=== PATIENT | female | born 1985 | race Caucasian/White ===

== ENCOUNTER 2021-03-10 12:52 | Outpatient (REF) | payer BC, SELFPAY ==
[2021-03-10 17:08] LABS: *AMPHETAMINES SCREEN URINE Negative (Negative); *BARBITURATES SCREEN URINE Negative (Negative); *BENZODIAZEPINES SCREEN URINE Negative (Negative); Cannabinoids THC Negative (Negative); Cocaine Screen,Urine Negative (Negative); METHADONE URINE SCREEN Negative (Negative); OPIATES URINE SCREEN Negative (Negative)
[2021-03-10 17:10] LABS: Tricyclic Antidepressants Negative (Negative)
[2021-03-11 15:08] LABS: Chlamydia Result Negative (Negative); GC Result Negative (Negative)
[2021-03-17 13:51] LABS: Buprenorphine Negative ng/mL (Cutoff: 5.0); Norbuprenorphine Negative ng/mL (Cutoff: 2.5)
== END 2021-03-10 12:53 | disposition home or self-care (01) ==
LOC: LBN 12:52
PROVIDERS: Visit Provider Advanced Practice Midwife
DX: Z34.91 Encounter for supervision of normal pregnancy, unspecified, first trimester (principal); Z11.3 Encounter for screening for infections with a predominantly sexual mode of transmission; Z3A.11 11 weeks gestation of pregnancy
CPT/HCPCS: 80307; 87491; 87591; 87086

== ENCOUNTER 2021-03-22 03:55 | Outpatient (CLI) | payer BC, SELFPAY ==
[2021-03-22 10:29] LABS: Abs Immature Grans 0.05 10^3/uL (0.0-0.06); Absolute Basophil Count 0.04 10^3/uL (0.0-0.2); Absolute Eosinophil Count 0.35 10^3/uL (0.0-0.7); Absolute Lymphocyte Count 1.68 10^3/uL (1.2-3.4); Absolute Monocyte Count 0.56 10^3/uL (0.1-0.8); Absolute Neutrophil Count 9.01 10^3/uL (1.2-6.7); Basophils % 0.3; HCT 38.9 % (36.0-46.0); HGB 13.2 g/dL (11.2-15.7); Immature Grans % 0.4; Lymphocytes % 14.4; MCH 30.1 pg (27.0-33.0); MCHC 33.9 % (32.0-36.0); MCV 88.8 fL (80-95); MPV 10.1 fL (8.0-11.0); Monocytes % 4.8; Neutrophils % 77.1; Nucleated RBC 0 %; Platelet Count 322 10^3/uL (130-400); RBC 4.38 10^6/uL (3.93-5.22); RDW 12.5 % (11.7-14.6); RDW-SD 40.9 fL; WBC 11.69 10^3/uL (4.4-10.8)
[2021-03-22 11:58] LABS: TSH (W/Ref FT4) 2.09 uIU/mL (0.36-3.74)
[2021-03-23 10:01] LABS: Hepatitis B Surface Ag Negative (Negative)
[2021-03-23 11:55] LABS: HIV-1/2 Ag & Ab Screen Negative (Negative)
[2021-03-23 13:35] LABS: Hepatitis C Ab w Rflx HCV PCR Negative (Negative)
[2021-03-24 11:46] LABS: Rubella IgG Ab (UVM) Positive (See Note); Varicella IgG Antibody Positive (See Note)
[2021-03-24 13:12] LABS: Syphilis Total Ab w/Reflex Nonreactive (Nonreactive)
[2021-03-26 16:39] LABS: Specimen WB Whole Blood
[2021-04-06 15:48] LABS: Result Summary NEGATIVE; Specimen WB Whole Blood
== END 2021-03-22 03:56 | disposition home or self-care (01) ==
LOC: LBO 03:55
PROVIDERS: Visit Provider Advanced Practice Midwife
DX: O09.521 Supervision of elderly multigravida, first trimester (principal); Z11.4 Encounter for screening for human immunodeficiency virus [HIV]; Z11.59 Encounter for screening for other viral diseases; Z01.84 Encounter for antibody response examination; Z36.89 Encounter for other specified antenatal screening; Z3A.13 13 weeks gestation of pregnancy
CPT/HCPCS: 36415; 81329; 86787; 86803; 86850; 86900; 86901; 87340; 87389; 81220; 84443; 85025; 86762; 86780

== ENCOUNTER 2021-04-07 13:44 | Outpatient (REF) | payer BC, SELFPAY ==
[2021-04-13 11:59] LABS: AFP 46.3 ng/mL; Cigarette smoking status non-Smoker; GA used in risk estimate Scan estimate; IVF Pregnancy No; Initial or repeat testing Initial testing; Insulin dependent diabetes No; Maternal Weight 151 lbs; Number of Fetuses 1; Prev Pregnancy w/NTD No; RECOMMENDED FOLLOW UP None.; Results Summary Normal risk
== END 2021-04-07 13:45 | disposition home or self-care (01) ==
LOC: LBN 13:44
PROVIDERS: Visit Provider Advanced Practice Midwife
DX: O09.512 Supervision of elderly primigravida, second trimester (principal); Z3A.16 16 weeks gestation of pregnancy
CPT/HCPCS: 82105

== ENCOUNTER 2021-06-30 02:22 | Outpatient (CLI) | payer BC, SELFPAY ==
[2021-06-30 09:52] LABS: HCT 36.3 % (36.0-46.0); MCH 30.4 pg (27.0-33.0); MCHC 33.1 % (32.0-36.0); MCV 91.9 fL (80-95); MPV 9.9 fL (8.0-11.0); Platelet Count 274 10^3/uL (130-400); RBC 3.95 10^6/uL (3.93-5.22); RDW 12.8 % (11.7-14.6); RDW-SD 43.1 fL; WBC 11.76 10^3/uL (4.4-10.8)
[2021-06-30 09:58] LABS: Glucose,1 Hr (Glucola) 79 mg/dL (80-140)
== END 2021-06-30 02:23 | disposition home or self-care (01) ==
LOC: LBO 02:22
PROVIDERS: Advanced Practice Midwife; Visit Provider Advanced Practice Midwife
DX: Z34.92 Encounter for supervision of normal pregnancy, unspecified, second trimester (principal)
CPT/HCPCS: 36415; 82950; 85027

== ENCOUNTER 2021-08-12 16:00 | Outpatient (REF) | payer BC, SELFPAY | END 2021-08-12 16:01 | disposition home or self-care (01) | LOC: LBN 16:00 | PROVIDERS: Visit Provider Advanced Practice Midwife | DX: N89.8 Other specified noninflammatory disorders of vagina (principal); Z34.93 Encounter for supervision of normal pregnancy, unspecified, third trimester | CPT/HCPCS: 87480; 87510; 87660 ==

== ENCOUNTER 2021-08-25 07:11 | Outpatient (CLI) | payer BC, SELFPAY ==
[2021-08-25 10:52] VITALS: BP 120/74; PULSE 68; TEMP 36.7
[2021-08-25 11:26] VITALS: BP 120/74; PULSE 68
--- NOTE | 2021-08-25 13:05 | W.OBNST ---
Date of service: 08/25/21 Time of Service: 13:05 NST Evaluation Reason for NST Reasons for Nonstress Test: ADVANCED MATERNAL AGE Gestational Age Gestational Age in Weeks and Days: 36 Weeks and 0Days Test and Monitor Explained Test/Monitor Explained: Test Explained, Monitor Explained and Patient Verbalized Understanding Vital Signs Blood Pressure: 120/74 Pulse: 68 Temperature: 98.1 F NST Information Date on Monitor: 08/25/21 Time on Monitor: 10:51 Date off Monitor: 08/25/21 NST Interventions: PO Hydration NST Evaluation Patient States Movement: Present FHR Baseline: 115 Variability: Moderate 6-25 bpm Accelerations: 15x15 Decelerations: None NST Results: Reactive Note NST Note Note: NST was scheduled for AMA. Per consult with Dr. Wooten, Weekly NST not indicated due to age less than 40. Will call Cristina to discuss this. NST Reviewed and Verified by: Monie Romero
[2021-08-25 13:08] VITALS: BP 120/74; PULSE 68; TEMP 36.7
== END 2021-08-25 11:40 | disposition home or self-care (01) ==
LOC: BCD 07:17 → OBS 10:50
PROVIDERS: Visit Provider Advanced Practice Midwife
DX: O09.523 Supervision of elderly multigravida, third trimester (principal); Z3A.36 36 weeks gestation of pregnancy
CPT/HCPCS: 59025

== ENCOUNTER 2021-08-25 15:50 | Outpatient (REF) | payer BC, SELFPAY ==
[2021-08-25 16:46] LABS: *AMPHETAMINES SCREEN URINE Negative (Negative); *BARBITURATES SCREEN URINE Negative (Negative); *BENZODIAZEPINES SCREEN URINE Negative (Negative); Cannabinoids THC Negative (Negative); Cocaine Screen,Urine Negative (Negative); METHADONE URINE SCREEN Negative (Negative); OPIATES URINE SCREEN Negative (Negative)
[2021-08-25 16:50] LABS: Tricyclic Antidepressants Negative (Negative)
[2021-08-28 09:41] LABS: Buprenorphine Negative ng/mL (Cutoff: 5.0); Norbuprenorphine Negative ng/mL (Cutoff: 2.5)
== END 2021-08-25 15:51 | disposition home or self-care (01) ==
LOC: LBN 15:50
PROVIDERS: Visit Provider Advanced Practice Midwife
DX: Z34.93 Encounter for supervision of normal pregnancy, unspecified, third trimester (principal)
CPT/HCPCS: 80307; 87081

== ENCOUNTER 2021-09-10 07:10 | Outpatient (CLI) | payer BC, SELFPAY ==
[2021-09-10 12:04] VITALS: BP 121/69; PULSE 71; TEMP 36.7
[2021-09-10 12:16] VITALS: BP 121/69; PULSE 71
--- NOTE | 2021-09-10 12:51 | W.OBNST ---
Date of service: 09/10/21 Time of Service: 12:40 NST Evaluation Reason for NST Reasons for Nonstress Test: ADVANCED MATERNAL AGE Gestational Age Gestational Age in Weeks and Days: 38 Weeks and 2Days Test and Monitor Explained Test/Monitor Explained: Test Explained, Monitor Explained and Patient Verbalized Understanding Vital Signs Blood Pressure: 121/69 Pulse: 71 Temperature: 98.1 F Urine Results Urine Protein: Negative Urine Ketones: Negative Urine Glucose: Negative Urine Blood: Negative NST Information Date on Monitor: 09/10/21 Time on Monitor: 12:11 Date off Monitor: 09/10/21 Time off Monitor: 12:37 Total Time on Monitor: 26 NST Interventions: PO Hydration NST Evaluation Patient States Movement: Present FHR Baseline: 120 Variability: Moderate 6-25 bpm Accelerations: 15x15 Decelerations: None NST Results: Reactive Note NST Note Note: NST for AMA and BEBETO by Edilia Crawford CNM which was 12.4 today. NST is reactive and reassuring. Will return in 1 week. LORAINE NST Reviewed and Verified by: Monie Tavares
[2021-09-10 12:52] VITALS: BP 121/69; PULSE 71; TEMP 36.7
== END 2021-09-10 12:42 | disposition home or self-care (01) ==
LOC: BCD 07:11 → OBS 12:02
PROVIDERS: Visit Provider Advanced Practice Midwife
DX: O09.523 Supervision of elderly multigravida, third trimester (principal); Z3A.38 38 weeks gestation of pregnancy
CPT/HCPCS: 59025

== ENCOUNTER 2021-09-17 07:35 | Outpatient (CLI) | payer BC, SELFPAY ==
[2021-09-17 10:50] VITALS: BP 117/67; PULSE 74; TEMP 36.2
[2021-09-17 10:53] VITALS: BP 117/67; PULSE 74
[2021-09-17 13:06] VITALS: BP 117/67; PULSE 74; TEMP 36.2
--- NOTE | 2021-09-17 13:06 | W.OBNST ---
Date of service: 09/17/21 Time of Service: 13:06 NST Evaluation Reason for NST Reasons for Nonstress Test: ADVANCED MATERNAL AGE Gestational Age Gestational Age in Weeks and Days: 39 Weeks and 2Days Test and Monitor Explained Test/Monitor Explained: Test Explained, Monitor Explained and Patient Verbalized Understanding Vital Signs Blood Pressure: 117/67 Pulse: 74 Temperature: 97.2 F Urine Results Urine Protein: Negative Urine Ketones: Negative Urine Glucose: Negative Urine Blood: Negative NST Information Date on Monitor: 09/17/21 Time on Monitor: 10:40 Date off Monitor: 09/17/21 Time off Monitor: 11:13 Total Time on Monitor: 33 NST Interventions: PO Hydration NST Evaluation Patient States Movement: Present FHR Baseline: 125 Variability: Moderate 6-25 bpm Accelerations: 15x15 Decelerations: None NST Results: Reactive Note NST Note NST Reviewed and Verified by: Denisse Crawford
== END 2021-09-17 11:25 | disposition home or self-care (01) ==
LOC: BCD 07:37 → OBS 10:37
PROVIDERS: Visit Provider Advanced Practice Midwife
DX: O09.523 Supervision of elderly multigravida, third trimester (principal); Z3A.39 39 weeks gestation of pregnancy
CPT/HCPCS: 59025

== ENCOUNTER 2021-09-24 06:27 | Outpatient (CLI) | payer BC, SELFPAY ==
[2021-09-24 11:17] VITALS: BP 118/75; PULSE 71; TEMP 37
[2021-09-24 11:20] VITALS: BP 118/75; PULSE 71
[2021-09-24 12:38] VITALS: BP 118/75; PULSE 71; TEMP 37
--- NOTE | 2021-09-24 12:38 | W.OBNST ---
Date of service: 09/24/21 Time of Service: 12:38 NST Evaluation Reason for NST Reasons for Nonstress Test: ADVANCED MATERNAL AGE Gestational Age Gestational Age in Weeks and Days: 40 Weeks and 2Days Test and Monitor Explained Test/Monitor Explained: Test Explained, Monitor Explained and Patient Verbalized Understanding Vital Signs Blood Pressure: 118/75 Pulse: 71 Temperature: 98.6 F Urine Results Urine Protein: Negative Urine Ketones: Negative Urine Glucose: Negative Urine Blood: Negative NST Information Time on Monitor: 11:15 Date off Monitor: 09/24/21 Time off Monitor: 11:57 NST Interventions: PO Hydration and Other NST Evaluation Patient States Movement: Present FHR Baseline: 120 Variability: Moderate 6-25 bpm Accelerations: 15x15 Decelerations: None NST Results: Reactive Note NST Note Note: Pt to return 09/28 for 41 wk NST and fluid check NST Reviewed and Verified by: Denisse Crawford
== END 2021-09-24 12:12 | disposition home or self-care (01) ==
LOC: BCD 06:29 → OBS 11:12
PROVIDERS: Visit Provider Advanced Practice Midwife
DX: O09.523 Supervision of elderly multigravida, third trimester (principal); Z3A.40 40 weeks gestation of pregnancy
CPT/HCPCS: 59025

== ENCOUNTER 2021-09-28 13:32 | Outpatient (CLI) | payer BC, SELFPAY ==
[2021-09-28 16:55] VITALS: BP 127/75; PULSE 71
[2021-09-28 17:34] VITALS: BP 127/75; PULSE 71; TEMP 36.4
--- NOTE | 2021-09-28 20:18 | W.OBNST ---
Date of service: 09/28/21 Time of Service: 20:18 NST Evaluation Reason for NST Reasons for Nonstress Test: POSTDATES Gestational Age Gestational Age in Weeks and Days: 40 Weeks and 6Days Test and Monitor Explained Test/Monitor Explained: Test Explained, Monitor Explained and Patient Verbalized Understanding Vital Signs Blood Pressure: 127/75 Pulse: 71 Temperature: 97.5 F Urine Results Urine Protein: Negative Urine Ketones: Negative Urine Glucose: Negative Urine Blood: Negative NST Information Date on Monitor: 09/28/21 Time on Monitor: 16:52 Date off Monitor: 09/28/21 Time off Monitor: 17:30 Total Time on Monitor: 38 NST Interventions: PO Hydration and Other Contraction Frequency: 4 NST Evaluation Patient States Movement: Present FHR Baseline: 130 Variability: Moderate 6-25 bpm Accelerations: 15x15 Decelerations: None NST Results: Reactive Note NST Note Note: BEBETO done at bedside=17.0 cm NST reactive. Cvx closed/90%, mid-pelvis, LOP @ -2 Pt declines induction for post dates Will return in 3 days for repeat NST NST Reviewed and Verified by: Denisse Crawford
[2021-09-28 20:20] VITALS: BP 127/75; PULSE 71; TEMP 36.4
== END 2021-09-28 18:50 ==
LOC: BCD 13:37 → OBS 16:49
PROVIDERS: Visit Provider Advanced Practice Midwife
DX: O48.0 Post-term pregnancy (principal); Z3A.40 40 weeks gestation of pregnancy
CPT/HCPCS: 59025

== ENCOUNTER 2021-10-01 06:21 | Outpatient (CLI) | payer BC, SELFPAY ==
[2021-10-01 09:46] VITALS: BP 122/78; PULSE 72; TEMP 37
[2021-10-01 09:52] VITALS: BP 122/78; PULSE 72
--- NOTE | 2021-10-01 10:32 | W.OBNST ---
Date of service: 10/01/21 Time of Service: 10:15 NST Evaluation Reason for NST Reasons for Nonstress Test: POSTDATES Gestational Age Gestational Age in Weeks and Days: 41 Weeks and 2Days Test and Monitor Explained Test/Monitor Explained: Test Explained and Monitor Explained Vital Signs Blood Pressure: 122/78 Pulse: 72 Temperature: 98.6 F Urine Results Urine Protein: Negative Urine Ketones: Negative Urine Glucose: Negative Urine Blood: Negative NST Information Date on Monitor: 10/01/21 Time on Monitor: 09:43 Date off Monitor: 10/01/21 Time off Monitor: 10:05 Total Time on Monitor: 22 NST Interventions: PO Hydration NST Evaluation Patient States Movement: Present FHR Baseline: 120 Variability: Moderate 6-25 bpm Accelerations: 15x15 Decelerations: None NST Results: Reactive Note NST Note Note: NST for 41w2d gestation and AMA. Cristina is feeling well. Denies signs of labor. She does not want to be induced until 42 weeks gestation. She has been informed of risks and benefits of expectant management including but not limited to increased risk of IUFD. She agrees to testing with NST and BEBETO on 10/05 but declines scheduling induction on 10/06 until she has the information from her visit on 10/05/21. Declines VE or induction today. NST today is reactive and reassuring. LORAINE NST Reviewed and Verified by: Monie Tavares
[2021-10-01 10:37] VITALS: BP 122/78; PULSE 72; TEMP 37
== END 2021-10-01 10:20 | disposition home or self-care (01) ==
LOC: BCD 06:23 → OBS 09:40
PROVIDERS: Visit Provider Advanced Practice Midwife
DX: O48.0 Post-term pregnancy (principal); Z3A.41 41 weeks gestation of pregnancy
CPT/HCPCS: 59025

== ENCOUNTER 2021-10-04 09:32 | Outpatient (CLI) | payer BC, SELFPAY ==
[2021-10-04 09:49] VITALS: BP 118/76; PULSE 70; RESP 16; TEMP 36.6
[2021-10-04 09:50] VITALS: BP 118/76; PULSE 70; TEMP 36.6
--- NOTE | 2021-10-04 10:56 | W.OBNST ---
Date of service: 10/04/21 Time of Service: 10:15 NST Evaluation Reason for NST Reasons for Nonstress Test: POSTDATES Gestational Age Gestational Age in Weeks and Days: 41 Weeks and 5Days Test and Monitor Explained Test/Monitor Explained: Test Explained, Monitor Explained and Patient Verbalized Understanding Vital Signs Blood Pressure: 118/76 Pulse: 70 Temperature: 97.9 F Urine Results Urine Protein: Negative Urine Ketones: Negative Urine Glucose: Negative Urine Blood: Negative NST Information Date on Monitor: 10/04/21 Time on Monitor: 09:44 Date off Monitor: 10/04/21 Time off Monitor: 10:08 Total Time on Monitor: 24 NST Interventions: PO Hydration NST Evaluation Patient States Movement: Present FHR Baseline: 120 Variability: Moderate 6-25 bpm Accelerations: 15x15 Decelerations: None NST Results: Reactive Note BEBETO (done by Dr. Webb) Results of BEBETO: 9.26 NST Note Note: NST is reactive and reassuring. CAT I. US / BEBETO 9.[address] Webb. Patient is encouraged to have IOL due to post dates and agrees to move forward with induction on 10/07/21 at 0930. VE done today cervix is closed, feels like it is short, anterior, head is -1. Carlito Morales (partner) and myself have talked about beyond 42 weeks can increase risk for intolerance of labor as placenta ages, and potential IUFD. They verbalize understanding of this and rationale for induction. IOL has been offered and patient declines beginning induction until 10/07/21. LORAINE NST Reviewed and Verified by: Monie Tavares
[2021-10-04 11:00] VITALS: BP 118/76; PULSE 70; TEMP 36.6
== END 2021-10-04 10:32 | disposition home or self-care (01) ==
LOC: BCD 09:39 → OBS 09:40
PROVIDERS: Visit Provider Advanced Practice Midwife
DX: O48.0 Post-term pregnancy (principal); Z3A.41 41 weeks gestation of pregnancy
CPT/HCPCS: 59025

== ENCOUNTER 2021-10-06 11:22 | Outpatient (CLI) | payer BC, SELFPAY ==
[2021-10-06 11:23] VITALS: BP 132/81; PULSE 69
[2021-10-06 12:32] VITALS: BP 132/81; PULSE 63; TEMP 36.6
--- NOTE | 2021-10-06 12:38 | W.OBNST ---
Date of service: 10/06/21 Time of Service: 12:39 NST Evaluation Reason for NST Reasons for Nonstress Test: POSTDATES Gestational Age Gestational Age in Weeks and Days: 42 Weeks and 0Days Test and Monitor Explained Test/Monitor Explained: Test Explained, Monitor Explained and Patient Verbalized Understanding Vital Signs Blood Pressure: 132/81 Pulse: 63 Temperature: 97.9 F NST Information Date on Monitor: 10/06/21 Time on Monitor: 11:20 Date off Monitor: 10/06/21 Time off Monitor: 11:49 Total Time on Monitor: 29 NST Interventions: PO Hydration and Other NST Evaluation Patient States Movement: Present FHR Baseline: 125 Variability: Moderate 6-25 bpm Accelerations: 15x15 Decelerations: None NST Results: Reactive Note NST Note Note: Cristina had a scheduled induction for tomorrow morning. Cristina called this morning and expressed that she would like to come in for induction today. Due to staffing on the unit and TOLAC in progress, the induction is on hold at the moment. SVE and cervix is closed/-1/ soft/50% effaced. I plan to call Cristina when induction is possible. NST Reviewed and Verified by: Monie Romero
[2021-10-06 12:41] VITALS: BP 132/81; PULSE 63; TEMP 36.6
== END 2021-10-06 11:55 | disposition home or self-care (01) ==
LOC: BCD 11:22 → OBS 11:23
PROVIDERS: Visit Provider Advanced Practice Midwife
DX: O48.0 Post-term pregnancy (principal); Z3A.42 42 weeks gestation of pregnancy
CPT/HCPCS: 59025

== ENCOUNTER 2021-10-07 09:33 | Inpatient (IN) | payer BC, SELFPAY ==
[2021-10-07 10:46] VITALS: BP 128/79; PULSE 60; RESP 18; TEMP 36.5
--- NOTE | 2021-10-07 11:11 | HPE_ITS ---
Date of service: 10/07/21 Time of Service: 11:13 Assessment and Plan Assessment and plan (1) Post-dates : Status: Acute Assessment and plan: IOL and Anticipate (2) Elective induction of labor planned: Status: Acute Assessment and plan: Admit to Center. Comfort measures. Covid- 19 test. Explained options for cervical ripening. Will proceed with misoprotol 50 mcg PO for cervical ripening. Anticipate . OB-HPI Labor/Delivery History of Present Illness Reason for Visit: POST DATES Chief Complaint: Scheduled Induction of Labor Indication for Induction: Post Date. SCOT Calculator Estimated Delivery Date Method Current WG Current Estimate 09/22/21 LMP (Certain) 42w 1d Other Estimates 09/23/21 Ultrasound #1 42w 0d Comments: Cristina is here for cervical ripening for post dates . She denies current contractions. History of Present Expected Delivery Route/Plan - CNM FOB/partner - Carlito Langston (first child) BB no circ As low interventive and unmedicated a as possible, access to tub/shower GBS negative Carlito for labor support Specific Issues/Plan 1. AMA: offered [facility] level 2 sono and MFM consult, pt & FOB will discuss 1a. Level II US at [facility] normal anatomy, placenta anterior 2. To start low dose ASA 81mg/162mg alternating daily for risk of HTN d/t AMA and nulliparity 2a. unable to tolerate ASA therapy as of 03/24/21 2b. restarted ASA early March as no more nose bleeds 3. Desires all genetic screening, 3a. CF & SMA neg, [place]: low prob x3, single marker AFP result: nml risk for NTD- planning gender reveal 4. Pt weighed 10 lbs 1 oz at , her brother was 10'10 5. Pt and FOB are COVID vaccinated 6. Hx asthma, uses inhaler as needed 7. Symphysis pubis injury - attending PT visits. 8. Constipation - drinking more water. doing acupuncture. PFSH All Active Problems (Updated 10/07/21 @ 11:20 by Monie Romero CNM) Elective induction of labor planned (Acute) Post-dates (Acute) Symphysis pubis disruption (Acute) Asthma affecting , antepartum (Acute) Elderly primigravida (Acute) (Acute) Medical History (Updated 10/07/21 @ 11:20 by Monie Romero CNM) Positive test Vaginal odor VPS neg Family History (Updated 02/15/21 @ 11:23 by Val Garnica NP) Maternal Grandfather Diabetes Hypertension Hyperlipidemia Social History (Updated 03/05/21 @ 13:32 by Uzma Webb MD) Smoking risk assessment performed?: No Household members: other Details: [facility] Number of Children: 0 current occupation: [employer] History History 1 Para 0 Hx # Term Pregnancies 0 Multiple births 0 Hx # Pregnancies 0 Ectopic pregnancies 0 AB induced 0 Hx Number of Living Children 0 AB spontaneous 0 Meds Allergies and Home Medications Allergies Allergy/AdvReac Type Severity Reaction Status Date / Time latex Allergy Mild rash Verified 10/01/21 10:20 Home Medications Medication Instructions Recorded Confirmed Type [place] vit PO DAILY 02/15/21 10/01/21 History albuterol sulfate 90 mcg/actuation 2 puff INHALATION Q6H PRN 02/15/21 10/01/21 History aerosol inhaler aspirin 81 mg tablet,delayed 81 mg PO DAILY #90 tab 05/12/21 10/01/21 Rx release fluticasone 100 mcg-salmeterol 50 1 inh INHALATION BID PRN 08/25/21 10/01/21 History mcg/dose blistr powdr for inhalation (Advair Diskus) Exam Detailed Labor and Delivery Exam Dilation: 0 Effacement (%): 50 Cervix position: posterior Consistency: medium Velazco Score: Cervical Points Exam 0 1 2 3 Dilation Closed 1-2cm 3-4 cm 5-6cm Effacement 0-30% 40-50% 60-70% 80% Consistency Firm Medium Soft Station -3 -2 -1,0 +1,+2 Position Posterior Mid Anterior Amniotic Membrane Status: Intact Monitor Mode: External Contraction Frequency(min): occasional Contraction Duration(sec): varies Contraction Intensity: Mild Fetus A Heart Rate Baseline: 115 Monitor Accelerations: 15 X 15 Monitor Decelerations: None Variability: Moderate (6-25 BPM) Presentation: Vertex Categories: Category I Est. Weight: 7 lb Results Results Group Beta Strep: Negative Blood Type: B+ Rubella Status: Immune Varicella Immunity: Immune Lab Results: GBS done 08/25/21 Risk Assessment Risk for Shoulder Dystocia Historical/Initial OB: NEGATIVE FOR: Pelvic Abnormality, Pre- BMI>30, Previous Shoulder Dystocia or Previous Macrosomia 40 Weeks: POSTIVE FOR: Post Dates; NEGATIVE FOR: EFW> 4500 gms or Maternal Weight Gain >40lb Increased Risk?: No Delivery Plan @ 36wks: spont labor, Delivery Plan @ 40 wks: spont labor, , low risk other then primiparous status Risk for Pre-Eclampsia Date Initiated/Initials: advised to start low dose ASA @ 12 wks, JK Yes, if one or more: NEGATIVE FOR: Hx Pre-E/Gest HTN, Chronic HTN, Multiple Gestation, Pre-gestational DM, Renal Disease, Systemic Lupus or APA Syndrome Yes, if 2 or more: POSITIVE FOR: Nulliparity and Age>= 35 yrs; NEGATIVE FOR: >10yr btwn pregnancies, BMI>30, ethinicty, Mother/Sister w/ Pre-E or Previous IUGR Risk for Post- Hemorrhage Initial: NEGATIVE FOR: Multiple Gestation, Previous PPH, Known Clotting Deficiency, Grand Multiparity or Anticoagulation At Risk?: No Counseled re: Active Management: No Risks Reviewed Risks Reviewed Upon Admission: Yes
[2021-10-07 11:31] LABS: HCT 36.3 % (36.0-46.0); HGB 12.3 g/dL (11.2-15.7); MCH 30.4 pg (27.0-33.0); MCHC 33.9 % (32.0-36.0); MCV 89.6 fL (80-95); MPV 10.6 fL (8.0-11.0); Platelet Count 243 10^3/uL (130-400); RBC 4.05 10^6/uL (3.93-5.22); RDW 12.3 % (11.7-14.6); WBC 11.95 10^3/uL (4.4-10.8)
[2021-10-07] MEDS: miSOPROStol 25 MCG TAB 50 MCG PO ×3 (11:38→20:04)
[2021-10-07 11:47] VITALS: BP 128/79; PULSE 60
[2021-10-07 11:57] LABS: Source Nasal/Nares
[2021-10-07 14:21] VITALS: BP 118/74; PULSE 78; RESP 20; TEMP 36.8
[2021-10-07 15:08] LABS: COVID-19 PCR Negative (Negative)
[2021-10-07 16:59] VITALS: BP 128/86; PULSE 72; RESP 16; TEMP 36.6; O2SAT 98
[2021-10-07 19:39] VITALS: BP 132/82; PULSE 67; RESP 18; TEMP 36.8
[2021-10-08] VITALS (11 sets, daily range): BP systolic 115–149; BP diastolic 64–93; PULSE 59–77; RESP 10–20; TEMP 36.5–37.1; O2SAT 96
[2021-10-08] MEDS: miSOPROStol 25 MCG TAB 50 MCG PO
--- NOTE | 2021-10-08 05:39 | W.PM.OBNL1 ---
Date of service: 10/08/21 Time of Service: 05:39 Pelvic Exam Comments: exam deferred Contractions Monitor Mode: External Contraction Frequency(min): irregullar Contraction Duration(sec): 40-50 Intensity: Mild/Moderate Fetus A Monitor: External (US) Presentation: Vertex Variability: Moderate (6-25 BPM) Categories: Category I FHR Rhythm: Regular Accelerations: 15 X 15 Decelerations: None Amniotic Membrane Status: Intact Assessment and Plan Assessment and plan (1) Elective induction of labor planned: Status: Acute Assessment and plan: Will plan to continue misoprostol for cervical ripening. comfort measures. continuous monitoring for 2 hours and assess patient's status. SVE deferred at this time until patient's discomfort indicates. Objective Abnormal lab results 10/07/21 Range/Units Unknown WBC 11.95 H (4.4-10.8) 10^3/uL Temp Pulse Resp BP Pulse Ox 97.7 F 77 18 128/86 98 10/08/21 00:02 10/08/21 00:02 10/08/21 00:02 10/08/21 00:02 10/07/21 16:59 Laboratory Results WBC 11.95 10^3/uL (4.4-10.8) H 10/07/21 Unknown RBC 4.05 10^6/uL (3.93-5.22) 10/07/21 Unknown Hgb 12.3 g/dL (11.2-15.7) 10/07/21 Unknown Hct 36.3 % (36.0-46.0) 10/07/21 Unknown MCV 89.6 fL (80-95) 10/07/21 Unknown MCH 30.4 pg (27.0-33.0) 10/07/21 Unknown MCHC 33.9 % (32.0-36.0) 10/07/21 Unknown RDW 12.3 % (11.7-14.6) 10/07/21 Unknown Plt Count 243 10^3/uL (130-400) 10/07/21 Unknown MPV 10.6 fL (8.0-11.0) 10/07/21 Unknown COVID-19 Source Nasal/Nares 10/07/21 11:20 SARS-CoV-2 (PCR) Negative (Negative) 10/07/21 11:20 Patient ABO/Rh B Positive 10/07/21 11:20 Antibody Screen NEGATIVE 10/07/21 11:20 Subjective Interval history since last seen: Cristina requested that fifth dose of misoprostol be delayed so she could rest. She awoke at 0530 and requested another dose. Results Hemoglobin/Hematocrit: Hgb 12.3 g/dL (11.2-15.7) 10/07/21 Unknown Hct 36.3 % (36.0-46.0) 10/07/21 Unknown Abnormal Lab Findings: Abnormal Labs 10/07/21 Unknown WBC 11.95 H
[2021-10-08] MEDS: miSOPROStol 50 MCG TAB PO (05:59)
[2021-10-08] MEDS: miSOPROStol 25 MCG TAB 50 MCG VG ×2 (09:59→13:53)
--- NOTE | 2021-10-08 10:22 | W.PM.OBNL1 ---
Date of service: 10/08/21 Time of Service: 10: Informed Consent Informed Consent: Risk,Benefits,Alternatives Discussed (available cervical ripening methods discussed) Pelvic Exam Dilation: 0 Effacement (%): 25 station: -1 Cervix Position: posterior Consistency: medium Vaginal Exam Presentation: Vertex Pooling: Negative Contractions Monitor Mode: External Contraction Frequency(min): irregular Contraction Duration(sec): 40-50 Intensity: Mild Fetus A Monitor: External (US) Heart Rate Baseline: 120 Presentation: Vertex Variability: Moderate (6-25 BPM) Categories: Category I FHR Rhythm: Regular Accelerations: 15 X 15 Decelerations: None Assessment and Plan Assessment and plan (1) Elective induction of labor planned: Status: Acute Assessment and plan: administered 25 mcg misoprostol PV. The second tablet was rejected as it was much smaller than the first. Will plan to obtain 25 mcg from pharmacy and administer the second dose when it arrives. Reviewed next steps with Cristina including cervical ripening balloon and cervidil. Reassess for signs of labor or cervical change. Comfort measures. Objective Abnormal lab results 10/07/21 Range/Units Unknown WBC 11.95 H (4.4-10.8) 10^3/uL Temp Pulse Resp BP Pulse Ox 98.1 F 73 10 L 115/73 98 10/08/21 09:40 10/08/21 09:40 10/08/21 09:40 10/08/21 09:40 10/07/21 16:59 Laboratory Results WBC 11.95 10^3/uL (4.4-10.8) H 10/07/21 Unknown RBC 4.05 10^6/uL (3.93-5.22) 10/07/21 Unknown Hgb 12.3 g/dL (11.2-15.7) 10/07/21 Unknown Hct 36.3 % (36.0-46.0) 10/07/21 Unknown MCV 89.6 fL (80-95) 10/07/21 Unknown MCH 30.4 pg (27.0-33.0) 10/07/21 Unknown MCHC 33.9 % (32.0-36.0) 10/07/21 Unknown RDW 12.3 % (11.7-14.6) 10/07/21 Unknown Plt Count 243 10^3/uL (130-400) 10/07/21 Unknown MPV 10.6 fL (8.0-11.0) 10/07/21 Unknown COVID-19 Source Nasal/Nares 10/07/21 11:20 SARS-CoV-2 (PCR) Negative (Negative) 10/07/21 11:20 Patient ABO/Rh B Positive 10/07/21 11:20 Antibody Screen NEGATIVE 10/07/21 11:20 Subjective Interval history since last seen: Cristina was able to fall asleep after the fifth dose of misoprostol. She is comfortable and contractions are very irregular and she is experiencing no discomfort. Results Hemoglobin/Hematocrit: Hgb 12.3 g/dL (11.2-15.7) 10/07/21 Unknown Hct 36.3 % (36.0-46.0) 10/07/21 Unknown Abnormal Lab Findings: Abnormal Labs 10/07/21 Unknown WBC 11.95 H
--- NOTE | 2021-10-08 13:50 | PGE_ITS ---
Date of service: 10/08/21 Time of Service: 13:50 Informed Consent Informed Consent: Risk,Benefits,Alternatives Discussed (available cervical ripening methods discussed) Pelvic Exam Dilation: 1 Effacement (%): 50 station: 0 Cervix Position: posterior Consistency: soft Vaginal Exam Presentation: Vertex Contractions Monitor Mode: External Contraction Frequency(min): every 3-8 Contraction Duration(sec): 50 Intensity: Mild/Moderate Fetus A Monitor: External (US) Heart Rate Baseline: 120 Presentation: Vertex Variability: Moderate (6-25 BPM) Categories: Category I FHR Rhythm: Regular Accelerations: 15 X 15 Decelerations: None Assessment and Plan Assessment and plan (1) Elective induction of labor planned: Status: Acute Assessment and plan: Coping well with contractions. Category 1 tracing. misoprostol 50 mcg now and Radha is hoping to take a nap. Hot pack provided. Anticipate Objective Temp Pulse Resp BP Pulse Ox 98.4 F 72 12 121/81 98 10/08/21 12:04 10/08/21 12:04 10/08/21 12:04 10/08/21 12:04 10/07/21 16:59 Laboratory Results WBC 11.95 10^3/uL (4.4-10.8) H 10/07/21 Unknown RBC 4.05 10^6/uL (3.93-5.22) 10/07/21 Unknown Hgb 12.3 g/dL (11.2-15.7) 10/07/21 Unknown Hct 36.3 % (36.0-46.0) 10/07/21 Unknown MCV 89.6 fL (80-95) 10/07/21 Unknown MCH 30.4 pg (27.0-33.0) 10/07/21 Unknown MCHC 33.9 % (32.0-36.0) 10/07/21 Unknown RDW 12.3 % (11.7-14.6) 10/07/21 Unknown Plt Count 243 10^3/uL (130-400) 10/07/21 Unknown MPV 10.6 fL (8.0-11.0) 10/07/21 Unknown COVID-19 Source Nasal/Nares 10/07/21 11:20 SARS-CoV-2 (PCR) Negative (Negative) 10/07/21 11:20 Patient ABO/Rh B Positive 10/07/21 11:20 Antibody Screen NEGATIVE 10/07/21 11:20 Subjective Interval history since last seen: Emmanuel is comfortable and went for a walk outside so the additional 25 mcg of misoprostol was not given. I had dicuseed Radha's status with Dr. Webb who is the covering archivist military history earlier this morning. We discussed giving another dose of misoprostol at this time and Radha agrees with this plan. Results Hemoglobin/Hematocrit: Hgb 12.3 g/dL (11.2-15.7) 10/07/21 Unknown Hct 36.3 % (36.0-46.0) 10/07/21 Unknown Abnormal Lab Findings: Abnormal Labs 10/07/21 Unknown WBC 11.95 H
--- NOTE | 2021-10-08 20:50 | W.PM.OBNL1 ---
Date of service: 10/08/21 Time of Service: 20:50 Informed Consent Informed Consent: Risk,Benefits,Alternatives Discussed (available cervical ripening methods discussed) Pelvic Exam Dilation: 2 Effacement (%): 80 station: +1 Cervix Position: mid Consistency: soft Vaginal Exam Presentation: Vertex Pooling: Negative Contractions Monitor Mode: External Contraction Frequency(min): 3 min Contraction Duration(sec): 50-60 Intensity: Moderate/Strong Fetus A Monitor: External (US) Heart Rate Baseline: 120 Presentation: Vertex Variability: Moderate (6-25 BPM) Categories: Category I FHR Rhythm: Regular Accelerations: 15 X 15 Decelerations: None Assessment and Plan Assessment and plan (1) Elective induction of labor planned: Start date: 10/07/21 Start time: 11:00 Status: Acute Assessment and plan: Encourage water therapy and position changes, adequate PO hydration. anticipate Objective Temp Pulse Resp BP Pulse Ox 98.2 F 59 L 18 124/77 98 10/08/21 19:22 10/08/21 19:22 10/08/21 19:22 10/08/21 19:22 10/07/21 16:59 Laboratory Results WBC 11.95 10^3/uL (4.4-10.8) H 10/07/21 Unknown RBC 4.05 10^6/uL (3.93-5.22) 10/07/21 Unknown Hgb 12.3 g/dL (11.2-15.7) 10/07/21 Unknown Hct 36.3 % (36.0-46.0) 10/07/21 Unknown MCV 89.6 fL (80-95) 10/07/21 Unknown MCH 30.4 pg (27.0-33.0) 10/07/21 Unknown MCHC 33.9 % (32.0-36.0) 10/07/21 Unknown RDW 12.3 % (11.7-14.6) 10/07/21 Unknown Plt Count 243 10^3/uL (130-400) 10/07/21 Unknown MPV 10.6 fL (8.0-11.0) 10/07/21 Unknown COVID-19 Source Nasal/Nares 10/07/21 11:20 SARS-CoV-2 (PCR) Negative (Negative) 10/07/21 11:20 Patient ABO/Rh B Positive 10/07/21 11:20 Antibody Screen NEGATIVE 10/07/21 11:20 Subjective Interval history since last seen: Cristina has been using the shower and various positions for comfort with good effect and coping well with stronger contractions. Results Hemoglobin/Hematocrit: Hgb 12.3 g/dL (11.2-15.7) 10/07/21 Unknown Hct 36.3 % (36.0-46.0) 10/07/21 Unknown Abnormal Lab Findings: Abnormal Labs 10/07/21 Unknown WBC 11.95 H
[2021-10-09] VITALS (53 sets, daily range): BP systolic 102–155; BP diastolic 58–88; PULSE 60–112; RESP 16–20; TEMP 36.5–37.8; O2SAT 95–100; BMI 28.1
--- NOTE | 2021-10-09 03:35 | W.PM.OBNL1 ---
Date of service: 10/09/21 Time of Service: 03:35 Informed Consent Informed Consent: Risk,Benefits,Alternatives Discussed (Artificial rupture of membranes. ) Pelvic Exam Dilation: 4 Effacement (%): 90 station: +1 Cervix Position: mid Consistency: soft Vaginal Exam Presentation: Vertex Contractions Monitor Mode: External Contraction Frequency(min): evry 3 minutes Contraction Duration(sec): 60 Intensity: Moderate Fetus A Heart Rate Baseline: 125 Presentation: Vertex Variability: Moderate (6-25 BPM) Categories: Category I FHR Rhythm: Regular Accelerations: 15 X 15 Decelerations: None Assessment and Plan Assessment and plan (1) Elective induction of labor planned: Status: Acute Assessment and plan: Artificial rupture of membranes was performed for a moderate amount of clear fluid. a monitor tracing was performed and was reactive. Will plan to continue to assess labor pattern. Repeat SVE in 2 hours or when appropriate. Objective Temp Pulse Resp BP Pulse Ox 98.6 F 67 18 143/78 H 96 10/09/21 03:30 10/09/21 03:30 10/09/21 03:30 10/09/21 03:30 10/09/21 02:30 Laboratory Results WBC 11.95 10^3/uL (4.4-10.8) H 10/07/21 Unknown RBC 4.05 10^6/uL (3.93-5.22) 10/07/21 Unknown Hgb 12.3 g/dL (11.2-15.7) 10/07/21 Unknown Hct 36.3 % (36.0-46.0) 10/07/21 Unknown MCV 89.6 fL (80-95) 10/07/21 Unknown MCH 30.4 pg (27.0-33.0) 10/07/21 Unknown MCHC 33.9 % (32.0-36.0) 10/07/21 Unknown RDW 12.3 % (11.7-14.6) 10/07/21 Unknown Plt Count 243 10^3/uL (130-400) 10/07/21 Unknown MPV 10.6 fL (8.0-11.0) 10/07/21 Unknown COVID-19 Source Nasal/Nares 10/07/21 11:20 SARS-CoV-2 (PCR) Negative (Negative) 10/07/21 11:20 Patient ABO/Rh B Positive 10/07/21 11:20 Antibody Screen NEGATIVE 10/07/21 11:20 Subjective Interval history since last seen: Radha used the tub for 2 hours with good effect. While in the tub, her contractions became less frequent. She was examined in the tub and was 4 cms/90% effaced. She has been experiencing moderate to strong contractions for 8-10 hours and is fatigued. She vomited earlier and complains of nausea but she has been taking frequent sips of fluids. She got out of the tub and ambulated in the room. Cristina requested that the festus novi monitor be removed and she requested intermittent auscultation of her baby. She returned to the bed and AROM was offered which she and partner Carlito agreed to. Results Hemoglobin/Hematocrit: Hgb 12.3 g/dL (11.2-15.7) 10/07/21 Unknown Hct 36.3 % (36.0-46.0) 10/07/21 Unknown Abnormal Lab Findings: Abnormal Labs 10/07/21 Unknown WBC 11.95 H
[2021-10-09] MEDS: Lactated Ringers 500 ML IV (04:06)
--- NOTE | 2021-10-09 05:25 | ANES.PREOP_ITS ---
General Info Date of Service Date Performed: 10/09/21 Height: 5 ft 7 in Weight: 81.647 kg Body Mass Index (BMI): 28.1 Meds Allergies and Home Medications Allergies Allergy/AdvReac Type Severity Reaction Status Date / Time latex Allergy Mild rash Verified 10/07/21 12:32 Home Medication Medication Instructions Recorded [place] vit 1 tab PO DAILY 02/15/21 albuterol sulfate 90 mcg/actuation 2 puff INHALATION Q6H PRN 02/15/21 aerosol inhaler aspirin 81 mg tablet,delayed 81 mg PO DAILY #90 tab 05/12/21 release fluticasone 100 mcg-salmeterol 50 1 inh INHALATION BID PRN 08/25/21 mcg/dose blistr powdr for inhalation (Advair Diskus) Current Visit Medications: Current Medications Generic Name Dose Route Start Last Admin Trade Name Freq PRN Reason Stop Dose Admin Fentanyl/Ropivacaine 200 ml 10/09/21 05:30 Fentanyl/Ropivacaine 2 Mcg/Ml And 0.1% 200 Ml [place] EP DIRECTED VIPUL Sodium Chloride 500 mls @ 0 mls/hr 10/09/21 04:00 Saline 500ml Bag IV PRN PRN As Directed Ringer's Solution 500 mls @ 500 mls/hr 10/09/21 05:17 IV 10/09/21 06:16 BOLUS ONE IV Miscellaneous Supplies 1 each 10/09/21 04:00 Iv Access IV DIRECTED VIPUL Sodium Chloride 0 ml 10/09/21 04:00 Normal Saline Flush 10 Ml Syr IVP PRN PRN Terbutaline Sulfate 0.25 mg 10/07/21 09:33 Terbutaline 1 Mg/Ml Vial SC PRN PRN PFSH Active Problems Active Problems: Problem Status Onset Code Elective induction of labor planned Post-dates O48.0 Symphysis pubis disruption S33.4XXA Asthma affecting , antepartum O99.519, J45.909 Elderly primigravida O09.519 Z34.90 Medical History Medical History (Updated 10/07/21 @ 11:20 by Monie Romero CNM) Positive test Vaginal odor VPS neg Tobacco Smoking/Tobacco Use Status: Never Alcohol Alcohol Intake: former Substance Use Substance use: Never Substance use type: does not use Prental History History 1 Para 0 Hx # Term Pregnancies 0 Multiple births 0 Hx # Pregnancies 0 Ectopic pregnancies 0 AB induced 0 Hx Number of Living Children 0 AB spontaneous 0 Vital Signs and Lab Results Vital Signs Most Recent Vital Signs in EMR: Most Recent Vital Signs Temp Pulse Resp BP Pulse Ox 36.7 C 73 18 139/71 96 10/09/21 04:30 10/09/21 04:32 10/09/21 04:30 10/09/21 04:32 10/09/21 02:30 Lab Results Result Diagrams: 10/07/21 Unknown Blood Type / Crossmatch: Patient ABO/Rh B Positive 10/07/21 Antibody Screen NEGATIVE 10/07/21 Complete Blood Count: White Blood Count 11.95 10^3/uL (4.4-10.8) H 10/07/21 23:59 10/07/21 Red Blood Count 4.05 10^6/uL (3.93-5.22) 10/07/21 23:59 10/07/21 Hemoglobin 12.3 g/dL (11.2-15.7) 10/07/21 23:59 10/07/21 Hematocrit 36.3 % (36.0-46.0) 10/07/21 23:59 10/07/21 Platelet Count 243 10^3/uL (130-400) 10/07/21 23:59 10/07/21 Complete Metabolic Panel: No Data to Display Liver Function Panel: No Data to Display Coagulation Panel: No Data to Display Cardiac Panel: No Data to Display Arterial Blood Gas: No Data to Display Venous Blood Gas: No Data to Display Pancreas Panel: No Data to Display Thyroid Panel: No Data to Display Infectious Disease: Coronavirus (COVID-19)(PCR) Negative (Negative) 10/07/21 11:20 10/07/21 Coronavirus 2019 Source Nasal/Nares 10/07/21 11:20 10/07/21 Blood Cultures: No Data to Display Toxicology Panel: No Data to Display Panel: No Data to Display Anesthesia Assessment and Plan Anesthesia History Personal History: No History of Anesthesia Complications Family History: No Family History of Anesthesia Complications Exercise Tolerance Exercise Tolerance: Metabolic Equivalents>4 Pertinent Negatives Pertinent Negatives: No Major Cardiovascular Symptoms or Complaints Cardiac & Pulmonary Exam Cardiac Exam: Normal S1/S2 Heart Sounds Pulmonary Exam: Clear Bilateral Breath Sounds Implantable Cardiac Device Does patient have a Pacemaker or an ICD?: No Airway Exam Known Difficult Airway: No Mallampati Class: 2 Mouth Opening: Normal (> 3cm) Thyromental Distance: Greater than 3 cm Neck Range of Motion: Full ROM Neck Circumference: Normal Teeth Condition: Normal Dentition ASA Classification ASA Score: ASA 2 Emergency Case?: No NPO Status NPO Status: Full Stomach Status Status: Confirmed Anesthesia Plan Resuscitation Status: Full Code Anesthesia Technique: Spinal Anesthesia Airway Planned: Natural Airway Monitors Used: Standard Monitors
--- NOTE | 2021-10-09 05:45 | W.PM.OBNL1 ---
Date of service: 10/09/21 Time of Service: 05:57 Informed Consent Informed Consent: Risk,Benefits,Alternatives Discussed (Artificial rupture of membranes. ) Pelvic Exam Dilation: 5 Effacement (%): 100 station: +1 Cervix Position: mid Consistency: soft Pooling: Positive Contractions Monitor Mode: External Contraction Frequency(min): every 3 Contraction Duration(sec): 60 Intensity: Moderate/Strong Fetus A Monitor: External (US) Heart Rate Baseline: 125 Presentation: Vertex Variability: Moderate (6-25 BPM) Categories: Category I FHR Rhythm: Regular Accelerations: 15 X 15 Decelerations: None Assessment and Plan Assessment and plan (1) Elective induction of labor planned: Status: Acute Assessment and plan: epidural analgesia. Encourgage rest. Pitocin augmentation if indicated. Anticipate . Objective Temp Pulse Resp BP Pulse Ox 98.1 F 73 18 139/71 96 10/09/21 04:30 10/09/21 04:32 10/09/21 04:30 10/09/21 04:32 10/09/21 02:30 Laboratory Results WBC 11.95 10^3/uL (4.4-10.8) H 10/07/21 Unknown RBC 4.05 10^6/uL (3.93-5.22) 10/07/21 Unknown Hgb 12.3 g/dL (11.2-15.7) 10/07/21 Unknown Hct 36.3 % (36.0-46.0) 10/07/21 Unknown MCV 89.6 fL (80-95) 10/07/21 Unknown MCH 30.4 pg (27.0-33.0) 10/07/21 Unknown MCHC 33.9 % (32.0-36.0) 10/07/21 Unknown RDW 12.3 % (11.7-14.6) 10/07/21 Unknown Plt Count 243 10^3/uL (130-400) 10/07/21 Unknown MPV 10.6 fL (8.0-11.0) 10/07/21 Unknown COVID-19 Source Nasal/Nares 10/07/21 11:20 SARS-CoV-2 (PCR) Negative (Negative) 10/07/21 11:20 Patient ABO/Rh B Positive 10/07/21 11:20 Antibody Screen NEGATIVE 10/07/21 11:20 Subjective Interval history since last seen: Cristina is experiencing fatiguE and requests pain relief. Options discussed and she elected to have an epidural and Bill WILLSON was called. A 500 cc bolus was given due to nausea and vomiting. Results Hemoglobin/Hematocrit: Hgb 12.3 g/dL (11.2-15.7) 10/07/21 Unknown Hct 36.3 % (36.0-46.0) 10/07/21 Unknown Abnormal Lab Findings: Abnormal Labs 10/07/21 Unknown WBC 11.95 H
--- NOTE | 2021-10-09 06:16 | W.ANESNEU ---
Epidural/Spinal Catheter Date Performed: 10/09/21 Procedure Start: 05:55 Procedure Stop: 07:25 Requesting Provider: Monie Tavares Procedure Location: Obstetrics Reason Performed: Labor Epidural Standard Monitors Applied: Blood Pressure, SpO2 and See EMR for corresponding vital signs Patient Position: Sitting Sedation Given (Indicate Dose Given): No Sedation given Patient Mental Status: Awake Sterility: Hand Hygiene, Surgical Cap, Sterile Gloves, Sterile Drape/Sheet and Chlorhexidine Procedure Location: L3-L4 Interspace Epidural Needle: Tuohy 18 Gauge Needle Length: 3.5 Inch Needle Approach: Midline Epidural Procedure: Skin Prepped, Sterile Drape Placed, 1% Lidocaine to skin and subcutaneous tissue with 25G needle, Tuohy Needle placed, JACKY to Saline Used, Epidural Catheter Placed, Negative Heme, Negative CSF Flow and Tuohy Needle Removed Catheter Placed?: Catheter Placed Test Dose (Indicate Dose Given): 3ml 1.5% Lidocaine with 1:200K Epinephrine Given and Negative Test Dose Loss of Resistance Depth (cm): 5 Catheter depth at skin (cm): 12 Dressing: [place] Dressing Placed, Mastisol Used and Dressing reinforced with Tape Epidural Provider Bolus (Indicate Dose Given): Total bolus dose given in 3-5 ml divided doses and Total Ropivacaine 0.1% with Fentanyl 2mcg/ml Given from pump. (ml) Dose:: 10 ml Additives (Indicate Dose Given ): None Infusion Medication: Medication Infusion Began Medication Infusion: Ropivacaine 0.1% with Fentanyl 2mcg/ml Maintenance Infusion Rate (ml/hour): 10 PCEA Bolus Dose (ml): 5 Block Level: N/A Paresthesia: None Ultrasound: Not Used Number of Attempts (See previous attempts in note section): 2 Procedure Tolerated: No Complications and Patient tolerated well Procedure Outcome: Successful Procedure Comment:: Negative test dose at 0607. Total of 20ml bolus given with VERY mild improvement of sharp contraction discomfort. Discussed with patient and decided to remove epidural and replace epidural. 2nd attempt was 1 space lower, JACKY at same depth and catheter left at 12cm. There was no appreciable difference between attempts. Dermatome assessment is maybe at hip level. Feet /legs feel normal. Next test at 0706. Bolus total of 15 ml with more noted relief, but still not complete. Pt. now nodding off. She now appears more comfortable and was educated on use of PCEA button. Legs feel slightly heavier now, dermatome assessment at t12, although does appear more comfortable and able to sleep. Performed By: Bill Lozano
[2021-10-09] MEDS: FentaNYL/ROPIvacaine 2 mcg/ml and 0.1% 200 ML CADD Cassette EP (06:57)
--- NOTE | 2021-10-09 09:18 | W.PM.OBNL1 ---
Date of service: 10/09/21 Time of Service: 09:33 Informed Consent Informed Consent: Risk,Benefits,Alternatives Discussed (Artificial rupture of membranes. ) Pelvic Exam Dilation: 10 Effacement (%): 100 station: +2 Contractions Monitor Mode: External Contraction Frequency(min): every 3-7 Contraction Duration(sec): 60 Intensity: Strong Fetus A Monitor: External (US) Heart Rate Baseline: 118 Variability: Moderate (6-25 BPM) Categories: Category I Accelerations: 15 X 15 Decelerations: Variable Recurrence: Episodic Assessment and Plan Assessment and plan (1) Elective induction of labor planned: Status: Acute Assessment and plan: Will begin assisting with pushing. Dr. Webb is aware of Radha's status and is present in-house at this time. Anticipate . Objective Temp Pulse Resp BP Pulse Ox 98.6 F 64 16 102/59 L 98 10/09/21 09:14 10/09/21 09:14 10/09/21 09:14 10/09/21 09:14 10/09/21 07:14 Laboratory Results WBC 11.95 10^3/uL (4.4-10.8) H 10/07/21 Unknown RBC 4.05 10^6/uL (3.93-5.22) 10/07/21 Unknown Hgb 12.3 g/dL (11.2-15.7) 10/07/21 Unknown Hct 36.3 % (36.0-46.0) 10/07/21 Unknown MCV 89.6 fL (80-95) 10/07/21 Unknown MCH 30.4 pg (27.0-33.0) 10/07/21 Unknown MCHC 33.9 % (32.0-36.0) 10/07/21 Unknown RDW 12.3 % (11.7-14.6) 10/07/21 Unknown Plt Count 243 10^3/uL (130-400) 10/07/21 Unknown MPV 10.6 fL (8.0-11.0) 10/07/21 Unknown COVID-19 Source Nasal/Nares 10/07/21 11:20 SARS-CoV-2 (PCR) Negative (Negative) 10/07/21 11:20 Patient ABO/Rh B Positive 10/07/21 11:20 Antibody Screen NEGATIVE 10/07/21 11:20 Subjective Interval history since last seen: Radha has been sleeping since epidural was placed. She is aware of contractions but very comfortable. Her bladder was assessed and appears to be full and she will try to void on a bedpan. Results Hemoglobin/Hematocrit: Hgb 12.3 g/dL (11.2-15.7) 10/07/21 Unknown Hct 36.3 % (36.0-46.0) 10/07/21 Unknown Abnormal Lab Findings: Abnormal Labs 10/07/21 Unknown WBC 11.95 H
[2021-10-09] MEDS: Lactated Ringers 1,000 ML 125 ML IV ×2 (10:13→18:31)
[2021-10-09] MEDS: Sodium Citrate 30 ML CUP PO (11:16)
[2021-10-09] MEDS: Oxytocin/Normal Saline 30 UNIT/500 ML BAG 2 UNITS IV (13:00)
--- NOTE | 2021-10-09 14:19 | W.PM.OBNL1 ---
Date of service: 10/09/21 Time of Service: 14:19 Informed Consent Informed Consent: Risk,Benefits,Alternatives Discussed (Artificial rupture of membranes. ) Pelvic Exam Dilation: 10 station: +2 Contractions Monitor Mode: External IUPC resting tone (mmHg): 25 IUPC peak pressure (mmHg): 40 Fetus A Monitor: External (US) Heart Rate Baseline: 120 Presentation: Vertex Variability: Moderate (6-25 BPM) Categories: Category I FHR Rhythm: Regular Accelerations: 15 X 15 Decelerations: Variable Recurrence: Episodic Amniotic Membrane Status: Ruptured Assessment and Plan Assessment and plan (1) Elective induction of labor planned: Status: Acute Assessment and plan: Continue to assess progress and resume active pushing when the contraction strength is adequate. Will continue to increase th epitocin by 2 mu/min until the labor pattern is adequate. (2) Prolonged second stage: Status: Acute Assessment and plan: I consulted with Dr. Webb who examined Cristina and suggested an IUPC which she placed and continuing to increase the pitocin while Cristina rests. The IUPC show inadequate contraction strength. Radha is resting on her right side with her left leg flexed and resting on the peanut ball. Objective Temp Pulse Resp BP Pulse Ox 99.0 F 78 18 108/69 96 10/09/21 12:42 10/09/21 12:42 10/09/21 12:42 10/09/21 12:42 10/09/21 12:11 Laboratory Results WBC 11.95 10^3/uL (4.4-10.8) H 10/07/21 Unknown RBC 4.05 10^6/uL (3.93-5.22) 10/07/21 Unknown Hgb 12.3 g/dL (11.2-15.7) 10/07/21 Unknown Hct 36.3 % (36.0-46.0) 10/07/21 Unknown MCV 89.6 fL (80-95) 10/07/21 Unknown MCH 30.4 pg (27.0-33.0) 10/07/21 Unknown MCHC 33.9 % (32.0-36.0) 10/07/21 Unknown RDW 12.3 % (11.7-14.6) 10/07/21 Unknown Plt Count 243 10^3/uL (130-400) 10/07/21 Unknown MPV 10.6 fL (8.0-11.0) 10/07/21 Unknown COVID-19 Source Nasal/Nares 10/07/21 11:20 SARS-CoV-2 (PCR) Negative (Negative) 10/07/21 11:20 Patient ABO/Rh B Positive 10/07/21 11:20 Antibody Screen NEGATIVE 10/07/21 11:20 Subjective Interval history since last seen: Cristina has been pushing intermittently in various positions including the stool and squatting with limited descent of the vertex. She has had little urge to push but has gradually begun feeling some pelvic pressure.The contractions were irregular and she was feeling them every 7-8 minutes so pitocin augmentation was started at 2 mu/min and was increased every thirty minutes by 2 mu/min and is currently at a rate of 6 mu/min Results Hemoglobin/Hematocrit: Hgb 12.3 g/dL (11.2-15.7) 10/07/21 Unknown Hct 36.3 % (36.0-46.0) 10/07/21 Unknown Abnormal Lab Findings: Abnormal Labs 10/07/21 Unknown WBC 11.95 H
--- NOTE | 2021-10-09 14:22 | OBCE_ITS ---
Date of service: 10/09/21 Time of Service: : Assessment and Plan Assessment and plan (1) Prolonged second stage: Status: Acute Assessment and plan: In consultation with Jojo Romero CNM, the patient and her I examined the patient and placed an IUPC. The oxytocin infusion is currently at 6 milliunits/min and contractions are registering with inadequate [place] units. The plan at this time is to continue the augmentation of her labor with an IUPC in place and have the patient stop maternal expulsive efforts until the contractions are stronger and closer together. (2) Post-dates : Status: Acute History of Present Illness History of Present Illness Chief Complaint: assessment of labor progress Narrative: I was asked by Jojo Romero CNM to examine Ms Vivar a female currently 42w3d EGA undergoing an scheduled induction of labor for postdates . She was admitted to the center 10/07/2021. She received cervical ripening 24 hours and began irregular contractions and cervical change without the need for oxytocin augmentation until earlier this morning. In the interim she has received a epidural for labor analgesia and has been comfortable. surveillance has been reassuring. [facility] All Active Problems (Updated 10/09/21 @ 14:26 by Monie Romero CNM) Prolonged second stage (Acute) Elective induction of labor planned (Acute) Post-dates (Acute) Symphysis pubis disruption (Acute) Asthma affecting , antepartum (Acute) Elderly primigravida (Acute) (Acute) Medical History (Updated 10/09/21 @ 14:26 by Monie Romero CNM) Positive test Vaginal odor VPS neg Family History (Updated 02/15/21 @ 11:23 by Val Garnica NP) Maternal Grandfather Diabetes Hypertension Hyperlipidemia Social History (Updated 03/05/21 @ 13:32 by Uzma Webb MD) Smoking/Tobacco Use Status: Never Smoking risk assessment performed?: Yes Alcohol Intake: former Drug use: Never Substance use type: does not use Household members: other Details: -Carlito Number of Children: 0 current occupation: [employer] Do you feel safe at home: Yes Do you feel safe in your relationship?: Yes History History 1 Para 0 Hx # Term Pregnancies 0 Multiple births 0 Hx # Pregnancies 0 Ectopic pregnancies 0 AB induced 0 Hx Number of Living Children 0 AB spontaneous 0 Exam Manual OB Exam: dilated 10, effaced fully and station '+1 (Molding present) Results Last Vital Signs Temp 98.4 F 10/09/21 14:20 Pulse 75 10/09/21 14:20 Resp 18 10/09/21 14:20 BP 111/58 L 10/09/21 14:20 Pulse Ox 96 10/09/21 12:11 Labs Result diagrams: 10/07/21 Unknown
--- NOTE | 2021-10-09 16:07 | PDOC.ANES ---
Date of service: 10/09/21 Time of Service: 16:07 Anesthesia Note Report Anesthesia Note: Contacted by CNM who advises patient has been fully dilated/effaced since 0930 this morning. She has been augmented for a mtter of hours now but with still ineffective contraction strength. She has remained very comfortable with the epidural and there is concern that the epidural may be limiting her ability to push effectively. Her motor strength has been 4/5. The options would be to decrease the epidural rate which may take some time to see if this helps or stop the epidural and restart with PCEA once patient is more aware of her contractions. I recommend that we stop the epidural pump until she feels contractions (pain >5/10) and see if this in fact will aid in improving contractions/pushing ability. Once this occurs, the epidural pump can be restarted and patient can again administer her PCEA doses as needed.
--- NOTE | 2021-10-09 18:41 | W.OBDELIVERY ---
Date of service: 10/09/21 Time of Service: 18:42 OB Labor/ Delivery Information Baby A Delivery Delivery Method: Spontaneaous Presentation: Vertex Cephalic Position: Vertex Vertex Position: Right Occipital Anterior Amniotic Fluid: Meconium (meconium fluid noted behind the head) Estimated Blood Loss: 300 Delivery Outcome: Liveborn Infant Complications: short cord and baby with poor tone and respiratory effort immediately at . The cord was clamped and cut immediately and the baby was transferred immediately to the warmer for evaluation Providers Nurse National Account Representative: Monie Romero Ferryboat Operator: Bill Lozano Auxiliary Equipment Operator: Diane Gilman Nurse: Valeria Jeffers Nurse: Malaika Yu Labor/Delivery Information Number of Babies in Womb: 1 Steroids Given: None Reason Steroids Not Administered: N/A Group Beta Strep: Negative Antibiotics Administered: No Rubella Status: Immune Blood Type: B+ Varicella Immunity: Immune Medication in Delivery: fentanyl/ropivocaine Maternal Complications: Prolonged Labor(>20hrs) and Prolonged Second Stage(>2hrs) Shoulder Dystocia: No Note: Radha awoke from sleeping and had more discomfort with contractions but very little urge to push. After consultation with dr. Webb and Bill Lozano [employer], a decision was made to turn off the epidural to assist with pushing efforts and to continue to increase the pitocin. Radha was transferred to the chair and began to feel discomfort and an urge to push approxiamtely 30 minutes after the epidural infusion was turned off. FHTs 120s during first stage of labor with occasional variable decellerations. FHTs 120s in second stage with occasional variable decellerations and terminal bradycardia to 80s-90s with . Radha was moved to the bed on her hands and knees and she continued pushing well. Second stage huddle was done every two hours during the second stage. Spontaneous delivery of male infant delivered in DAYANNA position. Baby was noted to have decreased tone and respiratory effort at and he was transferred to the warmer immediately for evaluation. There was thick meconium stained fluid noted after delivery of the head. He was transferred placed on mother's chest after stabilization for bonding. The placenta delivered spontaneously and appears to be intact with a three vessel cord. Pitocin 30 IV was administered before delivery of the placenta. The perineum was inspected and there was a vaginal abrasion which was repaired with an interrupted 3-0 vicryl suture and a left upper labial laceration which was repaired under local anesthetic which Radha tolerated well. After delivery, Mother and baby and father of the baby were stable and bonding well in the delivery room and there were no complications. Stages of Labor Complete Dilatation Date: 10/09/21 Complete Dilatation Time: 09:32 ROM Baby A: 10/09/21 ROM Baby A: 03:17 ROM Total Time- Baby A: [id number] Infant Delivery Date-Baby A: 10/09/21 Infant Delivery Time-Baby A: 17:41 Labor Stage 2 Duration: 8 hours and 9 minutes Placenta Delivery Date-Baby A: 10/09/21 Placenta Delivery Time-Baby A: 17:51 Labor-Stage 3 Duration: 10 minutes Placenta Status: Delivered Baby A Gender: Male Gestational Status: Postterm (>42 wks) Gestational Age in Weeks/Days: 42 Weeks and 3 Days Score-1 Minute Interval(Baby A) Heart Rate-1 minute: 100 BPM or Greater Respiratory Effort- 1 minute: Slow Respiration/Weak Cry Muscle Tone-1 minute: Limp Reflex Response-1 minute: Minimal Response Color-1 minute: Bluish Hands or Feet Total Score-1 minute: 5 Score-5 Minute Interval(Baby A) Heart Rate- 5 minute: 100 BPM or Greater Respiratory Effort-5 minute: Slow Respiration/Weak Cry Muscle Tone-5 minute: Minimal Flexion/Extension Reflex Response-5 minute: Minimal Response Color-5 minute: Bluish Hands or Feet Total Score- 5 minute: 6 Procedure Procedures: Cord Blood Collection (PRN) Interventions Repair of Laceration Type: Other (vaginal and left upper labial), Laceration Extension: N/A. Sponge Count Correct: Vaginal Sweep Peformed, Sharp Count Correct: Yes.
[2021-10-09] MEDS: Acetaminophen 325 MG TAB 650 MG PO (20:10)
[2021-10-09] MEDS: Dibucaine 1% 28 GM TUBE TP (20:11)
[2021-10-09] MEDS: Ibuprofen 600 MG TAB PO (20:11)
[2021-10-09] MEDS: Hamamelis Leaf/Glycerin 100 EACH BOX PR (20:11)
[2021-10-10 02:00] VITALS: BP 124/74; PULSE 75; RESP 18; TEMP 36.7; O2SAT 96
[2021-10-10] MEDS: Acetaminophen 325 MG TAB 650 MG PO ×3 (04:46→20:48)
[2021-10-10] MEDS: Ibuprofen 600 MG TAB PO ×3 (04:46→20:47)
[2021-10-10 07:30] VITALS: BP 113/77; PULSE 75; RESP 16; TEMP 36.4; O2SAT 96
[2021-10-10] MEDS: Docusate Sodium 100 MG CAP PO ×2 (08:14→14:21)
[2021-10-10 08:52] LABS: HCT 35.5 % (36.0-46.0); HGB 11.8 g/dL (11.2-15.7); MCH 30.1 pg (27.0-33.0); MCHC 33.2 % (32.0-36.0); MCV 90.6 fL (80-95); MPV 10.5 fL (8.0-11.0); Platelet Count 286 10^3/uL (130-400); RBC 3.92 10^6/uL (3.93-5.22); RDW 12.6 % (11.7-14.6); RDW-SD 41.8 fL; WBC 24.95 10^3/uL (4.4-10.8)
--- NOTE | 2021-10-10 12:50 | W.PM.OBPNV1 ---
Date of service: 10/10/21 Time of Service: 12:50 Assessment and Plan Assessment and plan (1) Term of male : Status: Acute Assessment and plan: Caring for baby independently. Pain is managed well with oral analgesics. Voiding without difficulty. The baby has not been well A - stable mother and baby , Post day 1 P - Discharge to home tomorrow. Routine post instructions. Continue to provide support. [facility] met with Radha today. [facility] Exam Physical Exam Vital signs: Temp Pulse Resp BP Pulse Ox 97.5 F L 75 16 113/77 96 10/10/21 07:30 10/10/21 07:30 10/10/21 07:30 10/10/21 07:30 10/10/21 07:30 Respiratory Exam Respiratory Exam: Normal Cardiovascular Exam Cardiovascular Exam: Normal Fundal Exam Fundus: Below Umbilicus Extremities Exam Extremity Exam: Normal Skin Exam Skin Exam: Normal Psychiatric Exam Psychiatric Exam: Normal Results Hemoglobin/Hematocrit: Hgb 11.8 g/dL (11.2-15.7) 10/10/21 08:35 Hct 35.5 % (36.0-46.0) L 10/10/21 08:35 Abnormal Lab Findings: Abnormal Labs 10/07/21 10/10/21 Unknown 08:35 WBC 11.95 H 24.95 H RBC 3.92 L Hct 35.5 L
--- NOTE | 2021-10-10 18:01 | W.ANESPOSTOP ---
Postoperative Evaluation Date, Time and Location Date Performed: 10/10/21 Time Performed: 11:00 Patient Location: Obstetrics Vital Signs Most Recent Imported Vital Signs: Most Recent Vital Signs Temp Pulse Resp BP Pulse Ox 36.4 C L 75 16 113/77 96 10/10/21 07:30 10/10/21 07:30 10/10/21 07:30 10/10/21 07:30 10/10/21 07:30 Pain Score Most Recent Pain Score: Most Recent Pain Score Pain Level [Abdomen] 3 10/09/21 16:54 Pain Level 0 10/07/21 10:46 Assessment Mental Status: Awake (Alert & Oriented to Patient Baseline) Airway and Respiratory Function: Patent airway with normal (patient baseline) respiratory exam Cardiovascular Function: Hemodynamically Stable Hydration Status: Adequately Hydrated Nausea & Vomiting: No Nausea or Vomiting Pain: Pain is tolerable per patient (Mild back discomofort.) Peripheral Nerve Block: Patient did not receive a nerve block Postoperative Comments:: Epidural effects gone, no lasting effects.
[2021-10-10 20:15] VITALS: BP 121/83; PULSE 77; RESP 18; TEMP 36.4; O2SAT 97
[2021-10-10] MEDS: Dibucaine 1% 28 GM TUBE TP (20:48)
[2021-10-11] MEDS: Ibuprofen 600 MG TAB PO ×2 (04:02→10:15)
[2021-10-11] MEDS: Acetaminophen 325 MG TAB 650 MG PO ×2 (04:02→10:15)
[2021-10-11 08:00] VITALS: BP 162/100; PULSE 74; RESP 17; TEMP 36.8; O2SAT 98
[2021-10-11 08:14] VITALS: BP 154/92
[2021-10-11 08:47] LABS: HCT 33.9 % (36.0-46.0); MCH 30.2 pg (27.0-33.0); MCHC 32.4 % (32.0-36.0); MCV 93.1 fL (80-95); MPV 10.3 fL (8.0-11.0); Platelet Count 260 10^3/uL (130-400); RBC 3.64 10^6/uL (3.93-5.22); RDW 12.6 % (11.7-14.6); WBC 16.33 10^3/uL (4.4-10.8)
[2021-10-11 09:02] LABS: ALT 31 U/L (14-59); AST 28 U/L (15-37); Albumin 2.4 g/dL (3.4-5.0); Alkaline Phosphatase 91 U/L (46-116); Anion Gap 4.8 mmol/L (3-11); BUN 11 mg/dL (7-18); Bilirubin, Total 0.2 mg/dL (0.2-1.0); CO2 27.2 mmol/L (21.0-32.0); Calcium 8.2 mg/dL (8.5-10.1); Chloride 106 mmol/L (98-107); Glucose 87 mg/dL (74-106); LDH 135 U/L (81-234); Potassium 3.5 mmol/L (3.5-5.1); Sodium 138 mmol/L (136-145); Total Protein 6.3 g/dL (6.4-8.2); Uric Acid 4.3 mg/dL (2.6-6.0)
--- NOTE | 2021-10-11 09:14 | NUR.NOTE ---
pt labs came back normal. RN spoke with CNM about results. RN went in room to offer pt tylenol for headache and pt was sound asleep. Nursing Note:
[2021-10-11 10:15] VITALS: BP 130/85
[2021-10-11] MEDS: Docusate Sodium 100 MG CAP PO (10:15)
--- NOTE | 2021-10-11 14:35 | DSE_ITS ---
Date of service: 10/11/21 Time of Service: 14:35 DS: Diagnosis Discharge Diagnosis (1) Term of male : Status: Acute Asessment and Plan: Caring for baby independently. Pain is managed well with oral analgesics. Voiding without difficulty. has been difficult due to poor latch. Cristina has been receiving help with this from Pilar [facility]. She is very fatigued and has not slept well in the hospital. Her B.P. last night was 121/83. It was elevated this morning at 162/100 and 154/92. She was experiencing some stress regarding the feedings but it improved after resting and was 130/85. preeclampsia labs were ordered by Edilia Crawford and were WNL. A - stable mother and baby , Post day 2, difficulties, maternal fatigue. P - Discharge to home. Routine post instructions. Radha will stay at the center to have a few more feedings observed and will be discharged when she feels ready. [facility] Discharge Plan Discharge Details Reason For Visit: POST DATES Admit Date/Time: 10/07/21 09:33 Admit Provider: Monie Romero Attending Provider: Monie Romero Primary Care Provider: Unknown,Unknown Home Meds and New Rx's Prescriptions: Continued albuterol sulfate 90 mcg/actuation HFA aerosol inhaler 2 puff inhalation Q6H [id number] [place] vit tablet 1 tab PO DAILY 0RF fluticasone propion-salmeterol [Advair Diskus] 100-50 mcg/dose blister with device 1 inh inhalation BID [id number] Label Comments: pt unsure of dose, has not picked up prescription yet this year Discontinued aspirin 81 mg tablet,delayed release (DR/EC) 81 mg PO DAILY Qty: 90 3RF Rx Instructions: take one tab daily and two tabs every other day Discharge Instructions Stand Alone Forms: BC Instructions, BC Post Vaginal Deliver Activity:: Activity as Tolerated Activity:: Activity as Tolerated Equipment/Supplies:: No Equipment Needed Diet:: As Tolerated OB:DS Summary Summary Vaginal Delivery Method: Spontaneaous Episiotomy Description: None Laceration Description: Other (vaginal and left upper labial) Laceration Extension: N/A Contraception Discussed Contraception Discussed: Yes Contraceptive Plan: Undecided, Gender-Baby A: Male Status at Discharge Functional status at discharge: independent ambulation Overall status at discharge: patient is back to baseline Mental Status: mental status grossly normal Speech and Movement: speech and movement normal Mood: congruent mood Affect: normal affect Exam Physical Exam Vital signs: Temp Pulse Resp BP Pulse Ox 98.2 F 74 17 130/85 98 10/11/21 08:00 10/11/21 08:00 10/11/21 08:00 10/11/21 10:15 10/11/21 08:00 Respiratory Exam Respiratory Exam: Normal Cardiovascular Exam Cardiovascular Exam: Normal Fundal Exam Fundus: Below Umbilicus Exam Perineum: Normal and Repair Intact Extremities Exam Extremity Exam: Normal Skin Exam Skin Exam: Normal Psychiatric Exam Psychiatric Exam: Abnormal (fatigue and difficulty taking in new information related to fatigue. ) PFSH All Active Problems (Updated 10/11/21 @ 08:30 by Denisse Crawford) Hypertension affecting , delivered, current hospitalization (Acute) Term of male (Acute) Medical History (Updated 10/11/21 @ 08:30 by Denisse Crawford) Asthma affecting , antepartum Family History (Updated 02/15/21 @ 11:23 by Val Garnica NP) Maternal Grandfather Diabetes Hypertension Hyperlipidemia Social History (Updated 03/05/21 @ 13:32 by Uzma Webb MD) Smoking/Tobacco Use Status: Never Smoking risk assessment performed?: Yes Alcohol Intake: former Drug use: Never Substance use type: does not use Household members: other Details: [facility] Number of Children: 0 current occupation: [employer] Do you feel safe at home: Yes Do you feel safe in your relationship?: Yes History History 1 Para 0 Hx # Term Pregnancies 0 Multiple births 0 Hx # Pregnancies 0 Ectopic pregnancies 0 AB induced 0 Hx Number of Living Children 0 AB spontaneous 0 DS: Data Vitals/I&O Vitals and I&O: Vital Signs Temperature 98.2 F 10/11/21 08:00 Pulse 74 10/11/21 08:00 Pulse Rhythm Regular 10/11/21 08:30 Respiratory Rate 17 10/11/21 08:00 Blood Pressure 130/85 10/11/21 10:15 Blood Pressure Mean 100 10/11/21 10:15 Pulse Oximetry 98 10/11/21 08:00 Oxygen Delivery Method Room Air 10/07/21 10:46 Oxygen Flow Rate 0 10/07/21 10:46 Pain Level 2 10/11/21 08:00 Comment 10/11/21 08:14 Data Completed and Pending Labs on day of discharge: Labs from last 24 hours 10/11/21 10/11/21 10/11/21 08:38 08:38 08:38 WBC 16.33 H D RBC 3.64 L Hgb 11.0 L Hct 33.9 L MCV 93.1 MCH 30.2 MCHC 32.4 RDW 12.6 Plt Count 260 MPV 10.3 Sodium 138 Potassium 3.5 Chloride 106 Carbon Dioxide 27.2 Anion Gap 4.8 BUN 11 Creatinine 1.0 Estimated GFR/1.73 m2 >= 60.00 Glucose 87 Uric Acid 4.3 Calcium 8.2 L Total Bilirubin 0.2 AST 28 ALT 31 Alkaline Phosphatase 91 Lactate Dehydrogenase Cancelled 135 Total Protein 6.3 L Albumin 2.4 L
== END 2021-10-11 18:35 | disposition home or self-care (01) | DRG 807 ==
PROVIDERS: Advanced Practice Midwife; Admitting Provider Advanced Practice Midwife; Visit Provider Advanced Practice Midwife
DX: O48.0 Post-term pregnancy (principal); Z37.0 Single live birth; O63.1 Prolonged second stage (of labor); Z3A.42 42 weeks gestation of pregnancy; J45.909 Unspecified asthma, uncomplicated; O99.52 Diseases of the respiratory system complicating childbirth; O77.0 Labor and delivery complicated by meconium in amniotic fluid; O70.0 First degree perineal laceration during delivery
CPT/HCPCS: 36415; 80053; 85027; 86850; 86900; 86901; 87635; 59200; 83615; 84550; J3490

== ENCOUNTER 2021-11-05 19:41 | Outpatient (REF) | payer BC, SELFPAY | END 2021-11-05 19:42 | disposition home or self-care (01) | LOC: LBN 19:41 | PROVIDERS: Visit Provider Advanced Practice Midwife | DX: R30.0 Dysuria (principal) | CPT/HCPCS: 87086 ==